=== PATIENT | female | born 1965 | race Caucasian/White ===

== ENCOUNTER 2018-10-29 12:27 | Emergency (ER) | payer OTHER ==
[~2018-10-29] VITALS: Ht 154.9 cm; Wt 84.8 kg
[~2018-10-29 12:27] MED LIST: ATIVAN1 MG PO; ATIVAN2 MG PO; DICY20TA PO; GLUCOTROL10 MG PO; INDERAL 20 MG; PRILOSEC; PRILOSEC40 MG PO; REGLAN 10 MG; VASOTEC10 MG PO; ZOFRAN4 MG PO; ZOLOFT100 MG PO
[2018-10-29] MEDS ORDERED: LEVO-T25 MCG (12:53)
[2018-10-29] MEDS ORDERED: METFORMIN HCL500 MG (12:53)
[2018-10-29] MEDS ORDERED: CELEXA10 MG (12:54)
[2018-10-29] MEDS ORDERED: ATIVAN0.5 M1 (12:54)
[2018-10-29] MEDS ORDERED: RESTORIL30 M1 (12:54)
[2018-10-29] MEDS ORDERED: ZESTRIL20 MG (12:54)
[2018-10-29] MEDS ORDERED: ZYRTEC10 M3 PO (15:26)
== END 2018-10-29 16:20 | disposition home or self-care (01) ==
LOC: ER 12:27
DX: T78.49XA Other allergy, initial encounter (principal); R21 Rash and other nonspecific skin eruption

== ENCOUNTER 2019-09-21 21:30 | Emergency (ER) | payer OTHER ==
[~2019-09-21] VITALS: Ht 154.9 cm; Wt 89.8 kg
[~2019-09-21 21:30] MED LIST changes: +ATIVAN0.5 M1; +CELEXA10 MG; +LEVO-T25 MCG; +METFORMIN HCL500 MG; +RESTORIL30 M1; +ZESTRIL20 MG; +ZYRTEC10 M3 PO
== END 2019-09-21 22:39 | disposition home or self-care (01) ==
LOC: ER 21:30
DX: H10.11 Acute atopic conjunctivitis, right eye (principal); H01.004 Unspecified blepharitis left upper eyelid

== ENCOUNTER 2020-01-22 21:17 | Emergency (ER) | payer OTHER ==
[~2020-01-22] VITALS: Ht 154.9 cm; Wt 87.5 kg
[2020-01-23] MEDS ORDERED: PHAZYME250 MG PO (06:45)
[2020-01-23] MEDS ORDERED: LEVSIN/SL0.125 MG SL (06:45)
[2020-01-23] MEDS ORDERED: INTESTINEX680 M2 PO (06:45)
== END 2020-01-23 07:35 | disposition home or self-care (01) ==
LOC: ER 21:17
DX: N83.292 Other ovarian cyst, left side (principal); N28.1 Cyst of kidney, acquired; R10.2 Pelvic and perineal pain; R10.32 Left lower quadrant pain; Z03.818 Encounter for observation for suspected exposure to other biological agents ruled out